=== PATIENT | male | born 1995 | race Caucasian/White ===

== ENCOUNTER 2017-06-19 15:28 | Emergency (ER) | payer OTHER ==
[~2017-06-19] VITALS: Ht 180.3 cm; Wt 67.5 kg
[2017-06-19 15:32] VITALS: BP 137/77; PULSE 108; TEMP 36.8; O2SAT 96; Ht 180.3 cm; Wt 67.5 kg
[2017-06-19] MEDS ORDERED: IBUPROFEN 600 MG TAB PO STA (15:40)
--- NOTE | 2017-06-19 15:59 | EMERGENCY ROOM VISIT NOTE ---
ED Visit Note First contact with patient: 15:35 CHIEF COMPLAINT: Left knee injury HISTORY OF PRESENT ILLNESS: This 21-year-old male presents to the ER with chief complaint of left knee injury. The patient states that he slipped on the ice on Monday and landed directly onto his kneecap. The patient states he was able to get up and ambulate. He states it did not bother him that bad and rated the pain at approximately a 3 out of 10 but today after walking around on This it went up to an 8 out of 10. He has not taken anything for pain. The patient denies any locking or giving out of the knee. The patient denies any prior knee injury. REVIEW OF SYSTEMS: 6 system review was performed and was negative unless stated otherwise in history of present illness. PMH: The patient is healthy; there is no significant medical or surgical history. SOCIAL HISTORY: Patient is a [employer] student. The patient denies any tobacco use but admits to occasional alcohol use. PHYSICAL EXAM: Vital Signs: Were reviewed Reviewed Nurse's notes. GEN.: 21-year -old white male appears in no acute distress. MENTAL STATUS: Alert, oriented, and cooperative. LEFT KNEE: No gross bony deformity noted. The patient has some ecchymosis and abrasion noted just medial to the patella. There is no joint effusion. Full range of motion with pain elicited with all movement. There is no ligamentous instability. The skin is normal and intact. EMERGENCY DEPARTMENT COURSE: The patient was evaluated. The patient was given Motrin 600 mg by mouth for pain. X-ray of the left knee was ordered and interpreted by myself without any evidence of fracture. This will later be interpreted by the radiologist. The patient was informed of the findings. The patient was placed in Madhav wrap and discharged home in stable condition. DIAGNOSIS: Left knee contusion DISCHARGE INSTRUCTIONS: Ice intermittently over the next 24 hours. Keep leg elevated whenever possible. Ibuprofen 600 mg every 6 hours with food for pain. Wear Madhav wrap until pain is tolerable without it. If symptoms should worsen, follow-up with [facility] for referral to orthopedics. Vital Signs Date Time Temp Pulse Resp B/P (MAP) Pulse Ox O2 Delivery O2 Flow Rate FiO2 06/19/17 15:32 36.8 108 18 137/77 96 Room Air Medications Administered Medications (Trade) Dose Ordered Sig/Susan Route Start Time Stop Time Status Last Admin Dose Admin Ibuprofen (Motrin Tab) 600 mg NOW STAT PO 06/19/17 15:40 06/19/17 15:43 DC 06/19/17 15:48 600 MG Departure Information Referrals No Doctor, Assigned (PCP) Patient Instructions [facility]
--- NOTE | 2017-06-19 16:02 | DIAGNOSTIC IMAGING REPORT ---
L KNEE 3 VIEWS CLINICAL HISTORY: left knee pain/fall/include sunrise view trauma. Pain. COMPARISON: None. DISCUSSION: The bones and joint spaces appear intact. There is no evidence of fracture, dislocation or bony disease. There is no evidence for soft tissue swelling. IMPRESSION: Negative study. The above report was generated using voice recognition software. It may contain grammatical, syntax or spelling errors. Electronically signed by: Venancio Massey M.D. 06/19/2017 4:00 PM Dictated Date/Time: 06/19/2017 3:59 PM
== END 2017-06-19 16:18 | disposition home or self-care (01) ==
LOC: C.EDB 15:31 → C.EDD 16:18
DX: S80.02XA Contusion of left knee, initial encounter (principal); W00.0XXA Fall on same level due to ice and snow, initial encounter; S80.212A Abrasion, left knee, initial encounter